=== PATIENT | female | born 1960 | race Caucasian/White ===

== ENCOUNTER → 2018-01-31 08:34 | Outpatient (CLI) | payer BC ==
[2010-09-20 07:50] VITALS: BMI 23.1
== END | disposition home or self-care (01) ==
LOC: D.CT 08:34
DX: R10.9 Unspecified abdominal pain (principal)

== ENCOUNTER 2018-11-29 06:10 | Emergency (ER) | payer BC ==
[~2018-11-29] VITALS: Ht 157.5 cm; Wt 63.6 kg
[2018-11-29 06:15] VITALS: Ht 157.5 cm; Wt 63.6 kg
[2018-11-29] MEDS ORDERED: TENORMIN50 MG PO (06:16)
[2018-11-29] MEDS ORDERED: TOPAMAX50 MG PO (06:17)
[2018-11-29] MEDS ORDERED: TRAZODONE HCL150 MG PO (06:17)
[2018-11-29] MEDS ORDERED: NORVASC10 MG PO (06:17)
[2018-11-29] MEDS ORDERED: CELEXA10 MG PO (06:17)
[2018-11-29 06:45] LABS: BASOPHILS 0.2 % (0-2); EOSINOPHILS 0.1 % (0-7); HEMATOCRIT 43.5 % (36.0-48.0); HEMOGLOBIN 14.9 g/dL (12-16); IMMATURE GRANULOCYTES 0.5 % (0-5); LYMPHOCYTES 7.5 % (15-50); MCH 28.8 pg (26.0-34.0); MCHC 34.3 g/dL (31.0-37.0); MEAN PLATELET VOLUME 9.4 fL (7.4-10.4); MONOCYTES 9.6 % (2-11); NEUTROPHILS 82.1 % (40-80); PLATELET COUNT 267 10x3/uL (130-400); RBC 5.18 10x6/uL (4.00-5.40); RDW 13.2 % (11.5-14.5)
[2018-11-29 07:03] LABS: APPEARANCE CLEAR (CLEAR); BILIRUBIN NEGATIVE (NEGATIVE); COLOR YELLOW (YELLOW); GLUCOSE NEGATIVE (NEGATIVE); KETONE NEGATIVE (NEGATIVE); NITRITE NEGATIVE (NEGATIVE); PROTEIN TRACE mg/dL (NEGATIVE); SPECIFIC GRAVITY 1.015 (1.005-1.020); UROBILINOGEN NORMAL (NORMAL)
[2018-11-29 07:06] LABS: ALBUMIN 4.2 g/dL (3.4-5.0); ALKALINE PHOSPHATASE 114 U/L (46-116); ALT (SGPT) 35 U/L (10-68); CALC OSMOLALITY 283 mosm/kg (275-300); CARBON DIOXIDE 24.5 mmol/L (21.0-32.0); CHLORIDE - SERUM 104 mmol/L (98-107); CREATININE - SERUM 1.2 mg/dL (0.6-1.3); PROTEIN - SERUM 8.3 g/dL (6.4-8.2); SODIUM 141 mmol/L (136-145); UREA NITROGEN 15 mg/dL (7-18); eGFR NON AFRICAN AMERICAN 49 mL/min (90-120)
[2018-11-29 07:09] LABS: GLUCOSE 136 mg/dL (74-106)
[2018-11-29 07:10] LABS: AMYLASE - SERUM 40 U/L (25-115); LIPASE 82 U/L (73-393); TROPONIN-I < 0.017 ng/mL (0.000-0.060)
[2018-11-29] MEDS ORDERED: FLOMAX0.4 MG PO (10:44)
[2018-11-29] MEDS ORDERED: HYDROCODON-ACE1 EAC7 PO (10:44)
[2018-11-29] MEDS ORDERED: ZOFRAN4 MG PO (10:44)
[2018-11-29 11:01] VITALS: BP 148/82
== END 2018-11-29 11:03 | disposition home or self-care (01) ==
LOC: D.ER 06:10
PROVIDERS: Family Medicine
DX: N20.1 Calculus of ureter (principal); I10 Essential (primary) hypertension

== ENCOUNTER 2018-12-15 05:55 | Inpatient (IN) | payer BC ==
[2018-12-12 14:25] LABS: BASOPHILS 0.3 % (0-2); EOSINOPHILS 3.4 % (0-7); HEMATOCRIT 39.2 % (36.0-48.0); HEMOGLOBIN 13.1 g/dL (12-16); IMMATURE GRANULOCYTES 0.6 % (0-5); LYMPHOCYTES 19.1 % (15-50); MCH 28.4 pg (26.0-34.0); MCHC 33.4 g/dL (31.0-37.0); MEAN PLATELET VOLUME 8.9 fL (7.4-10.4); MONOCYTES 11.5 % (2-11); NEUTROPHILS 65.1 % (40-80); RBC 4.61 10x6/uL (4.00-5.40); RDW 12.9 % (11.5-14.5); WBC 6.5 10x3/uL (4.8-10.8)
[2018-12-12 14:28] LABS: PLATELET COUNT 352 10x3/uL (130-400)
[2018-12-12 14:31] LABS: APTT 33.1 SECONDS (22.8-39.4); INR 1.03 (0.85-1.17)
[2018-12-12 14:48] LABS: ANION GAP 11.2 mmol/L (8-16); CALCIUM 8.9 mg/dL (8.5-10.1); CARBON DIOXIDE 27.2 mmol/L (21.0-32.0); CREATININE - SERUM 1.6 mg/dL (0.6-1.3); POTASSIUM - SERUM 4.4 mmol/L (3.5-5.1)
[~2018-12-15] VITALS: Ht 160 cm; Wt 65.5 kg
[2018-12-15] VITALS (10 sets, daily range): BP systolic 99–141; BP diastolic 54–77; Ht 160 cm; Wt 65.5 kg
--- NOTE | ~2018-12-15 | HEMODYNAMI ---
PATIENT:ELIOT RAUSCH MEDICAL RECORD: [id number] : 60 LOCATION:[facility] ADMISSION DATE: 12/15/18 Generatedon:12/15/201811:13 Patient name: ELIOT RAUSCH Patient #: [id number] SSN: : 1960 Date of study: 12/15/2018 Page: Of Hemodynamic Procedure Report Patient Data Patient Demographics Procedure consent was obtained First Name: ELIOT Gender: Female Last Name: SHALOM : 1960 Middle Initial: RUBI Age: 58 year(s) Patient #: [id number] Race: Unknown Additional ID: [id number] Contact details [address]: [address] [place] [address] [place] State: [place] City: [place] Zip code: [address] Past Medical History Allergies: No known allergies Admission Admission Data Admission Date: 12/15/2018 Admission Time: 5:55 Procedure Procedure Types Cath Procedure Peripheral Cath Diagnostic Procedure Nephro Perc Neph Uret Cath Procedure Description Procedure Date Procedure Date: 12/15/2018 Procedure Start Time: 10:28 Procedure Staff Name Function Fouzia Mohr RT Monitor Gabriel Kapadia RT Scrub Paul Kelly MD Performing Physician Steffi Huerta RN Nurse Procedure Data Cath Procedure Fluoroscopy Diagnostic fluoroscopy Total fluoroscopy Time: time: 11.2 min 11.2 min Diagnostic fluoroscopy Total fluoroscopy dose: 139 dose: 139 mGy mGy Contrast Material Contrast Material Type Amount (ml) Isovue 300 15 Diagnostic catheters Device Type Used For End Catheter Placement Merit Impress KA 2 5Fr 40CM catheter ([id number]) Procedure Medications Medication Administration Route Dosage Lidocaine 1% added to field 20 Heparin Flush Bag added to field 3 bags (1000units/500ml NS) unlisted medication 1 Versed I.V. 1 mg Fentanyl I.V. 50 mcg Versed I.V. 1 mg Fentanyl I.V. 50 mcg Versed I.V. 2 mg Hemodynamics Rest Heart Rate: 72 (bpm) Snapshots Pre Cath Intra NCS Post Cath Vital Signs Time Heart Resp SPO2 etCO2 NIBP (mmHg) Rhythm Pain Sedation Rate (ipm) (%) (mmHg) Status Level (bpm) 10:01:08 83 34 98 35.7 129/75(97) NSR 0 (11) 10(A) , No pain 10:05:24 77 9 35.7 128/70(102) NSR 0 (11) 10(A) , No pain 10:09:34 72 11 36.4 112/71(93) NSR 0 (11) 10(A) , No pain 10:13:44 76 17 36.4 128/63(102) NSR 0 (11) 10(A) , No pain 10:18:00 74 10 35 143/63(87) NSR 0 (11) 10(A) , No pain 10:22:20 75 9 100 33.4 130/68(112) NSR 0 (11) 10(A) , No pain 10:26:30 81 7 100 38 113/99(107) NSR 0 (11) 9(A) , No pain 10:30:35 77 13 99 35.7 130/76(107) NSR 0 (11) 9(A) , No pain 10:34:53 71 10 100 28.1 101/55(82) NSR 0 (11) 9(A) , No pain 10:38:57 67 3 100 35.7 91/63(85) NSR 0 (11) 8(A) , No pain 10:42:59 74 7 100 39.5 109/60(82) NSR 0 (11) 8(A) , No pain 10:47:11 73 9 100 39.5 95/52(77) NSR 0 (11) 8(A) , No pain 10:51:17 72 9 100 41.8 85/54(75) NSR 0 (11) 8(A) , No pain 10:54:03 72 7 100 42.6 104/56(81) NSR 0 (11) 8(A) , No pain 10:58:58 81 15 99 39.5 112/58(91) NSR 0 (11) 8(A) , No pain Medications Time Medication Route Dose Verified Delivered Reason Notes Effe ctiveness by by 10:22:56 Lidocaine 1% added 20ml Palu Miller for local to vial Robin Kelly MD anesthetic field 10:23:11 Heparin Flush added 3 Paul Miller used for Bag to bags Robin Kelly MD procedure (1000units/500ml field GUZMAN NS) 10:23:34 cefepime iv 1 gm Paul Kapadia Per Bradley Kelly RN physician 10:30:55 Versed I.V. 1 mg Paul Steffi for Bradley Kelly RN sedation 10:31:07 Fentanyl I.V. 50 Paul Kapadia for mcg Bradley Kelly RN sedation 10:34:50 Versed I.V. 1 mg Paul Steffi for Bradley Kelly RN sedation 10:34:58 Fentanyl I.V. 50 Paul Steffi for mcg Bradley Kelly RN sedation 10:47:41 Versed I.V. 2 mg Paul Steffi for Bradley Kelly RN sedation Procedure Log Time Note 9:29:54 Gabriel Kapadia RT (R) (CV) sent for patient. Start room use. 9:30:04 Time tracking: Regular hours (M-F 7:00 - 5:00) 9:30:09 Plan of Care:Hemodynamics will remain stable., Cardiac rhythm will remain stable., Comfort level will be maintained., Respiratory function will remain adequate., Patient/ family verbilizes understanding of procedure., Procedure tolerated without complication., Recovers from procedure without complications.. 9:30:15 Use device set IR Diagnostic 9:30:17 Sterile Angiographic Pack opened to sterile field. 9:30:17 Bag Decanter (2002S) opened to sterile field. 9:30:28 Patient received from Outpatients to IR Alert and oriented. Tansferred to table in Prone position. 9:30:29 Correct patient and procedure confirmed by team. 9:30:31 Signed procedure consent form obtained from patient. 9:30:32 ECG and BP/O2 sat monitors applied to patient. 9:30:33 Full Disclosure recording started 9:30:34 - 9:30:38 H&P Date Dictated: 12/15/2018 H&P Addendum completed by physician on day of procedure. (MUST COMPLETE FOR ALL OUTPATIENTS). 9:30:39 Pre-procedure instructions explained to patient. 9:30:40 Pre-op teaching completed and patient verbalized understanding. 9:30:42 Family in patients room. 9:30:45 Patient NPO since Midnight. 9:31:03 Patient allergic to No known allergies 9:31:05 Is the patient allergic to Iodine/contrast media? No. 9:31:07 Is patient on blood thinner?No 9:31:09 Patient diabetic? No. 9:31:11 - 9:31:12 ----Pre-sedation anethsthesia assessment.---- 9:31:15 Previous problem with sedation/anesthesia? No ? 9:31:17 Snore? Yes 9:31:18 Sleep apnea? No 9:31:20 Deviated septum? No 9:31:21 Opens mouth fully? Yes 9:31:23 Sticks out tongue? Yes 9:31:25 Airway obstruction? No ? 9:31:28 Dentures? No ? 9:59:32 CHIBA 22 X 15 needle opened to sterile field. 9:59:33 GLIDE CATHETER 5FR ANGLED 65cm (CG507) opened to sterile field. 9:59:55 - 10:00:00 Vital chart was started 10:00:02 Baseline sample Acquired. 10:00:24 KIT, INTRODUCER ACCUSTICK II W/C ([id number]) opened to sterile field. 10:08:04 - 10:08:41 IV patent on arrival in left forearm with D5/.45%NaCl at KVO. 10:08:52 Right Renal was prepped with chlora-prep and draped in sterile fashion. 10:08:59 - 10:22:56 Lidocaine 1% 20ml vial added to field was administered by Paul Kelly MD; for local anesthetic; 10:23:11 Heparin Flush Bag (1000units/500ml NS) 3 bags added to field was administered by Paul Kelly MD; used for procedure; 10:23:34 cefepime 1 gm iv was administered by Steffi Huerta RN; Per physician; 10:27:27 Physician arrived 10:27:30 --------ALL STOP TIME OUT------ 10:27:31 Final Timeout: patient, procedure, and site verified with staff and physician. All members of the team are in agreement. 10:28:03 Procedure started. 10:28:12 Local anesthetic to Right Renal area with Lidocaine 1% by Paul Kelly MD.INITIAL ACCESS ONLY 10:29:53 NITINOL .018 80cm wire ([id number]) opened to sterile field. 10:30:55 Versed 1 mg I.V. was administered by Steffi Huerta RN; for sedation; 10:31:07 Fentanyl 50 mcg I.V. was administered by Steffi Huerta RN; for sedation ; 10:34:50 Versed 1 mg I.V. was administered by Steffi Huerta RN; for sedation; 10:34:58 Fentanyl 50 mcg I.V. was administered by Steffi Huerta RN; for sedation ; 10:47:41 Versed 2 mg I.V. was administered by Steffi Huerta RN; for sedation; 10:51:11 GLIDE WIRE ANGLE 180cm (ZW4955) opened to sterile field. 10:51:32 TORQUE DEVICE PLASTIC .038 ( TD01) opened to sterile field. 10:51:39 BENTSON 145cm wire (Z72873) opened to sterile field. 10:51:42 A Merit Impress KA 2 5Fr 40CM catheter ([id number]) was advanced over the wire and used for . 10:54:06 GLIDE WIRE ADVANTAGE 260cm (BJ7012) opened to sterile field. 10:58:12 Tegaderm 6 x 8 (1628) opened to sterile field. 10:59:15 ka cath placed for nephro/ureteral access 11:00:17 Procedure ended.(Physican Out) 11:00:33 Fluoroscopy time 11.20 minutes. 11:00:40 Fluoroscopy dose: 139 mGy 11:00:40 Flurop Dose total: 139 11:00:48 Contrast amount:Isovue 300 15ml. 11:00:50 Procedure and supply charges have been captured, reviewed, submitted an d are correct. 11:01:23 Report given to Outpatients. 11:03:18 Vital chart was stopped 11:03:22 Full Disclosure recording stopped Device Usage Item Name Manufacture Quantity Catalog Hospital Part Current Minimal Lot# / Number Charge Number Stock Stock Serial# Code Bag Decanter Microtek 1 [id number] 07071 014125 5 () Medical Inc. Sterile Cardinal 1 [id number] 335009 734554 5 Angiographic Health Pack CHIBA 22 X Cook Medical 1 D00609 036596 398941 5 1341008 15 needle GLIDE Terumo 1 CG507 930469 358734 5 CATHETER 5FR ANGLED 65cm (CG507) KIT, [place] 1 [id number] 311834 405899 829164 5 [id number] INTRODUCER Scientific ACCUSTICK II W/C ([id number]) NITINOL .018 Medtronic 1 [id number] 521363 562023 5 [id number] 80cm wire (D152011) GLIDE WIRE Terumo 1 XS1093 415314 028717 255636 5 ANGLE 180cm (QU2676) TORQUE [place] 1 TD01 739937 497049 795575 5 DEVICE Scientific PLASTIC .038 ( TD01) BENTSON [facility] 1 N06669 968778 533218 5 145cm wire (G96203) Merit Merit 1 [id number] 816131 826712 5 Impress KA 2 Medical 5Fr 40CM catheter (08081SA1) GLIDE WIRE Terumo 1 WW1767 137238 663074 5 ADVANTAGE 260cm (CG0115) Tegaderm 6 x 3M 1 1628 784712 981630 5 8 (1628) Signature Audit [place] Stage Time Signature Unsigned Intra-Procedure 12/15/2018 Fouzia Kapadia RT 11:03:15 AM RT(R) (R) (CV) 12/15/2018 11:12:51 AM Intra-Procedure 12/15/2018 Gabriel 11:13:34 AM Kang RT (R) (CV); Fouzia Mohr RT(R) Signatures Monitor : Fouzia Mohr RT Signature : Date : Time : [facility] [address] [place] [address]
[~2018-12-15 05:55] MED LIST: CELEXA10 MG PO; FLOMAX0.4 MG PO; HYDROCODON-ACE1 EAC7 PO; NORVASC10 MG PO; TENORMIN50 MG PO; TOPAMAX50 MG PO; TRAZODONE HCL150 MG PO; ZOFRAN4 MG PO
--- NOTE | 2018-12-15 11:20 | NUR ---
1115 TO 2510 FROM XRAY BY STRETCHER, UP TO BR VOIDS LG AMT. IV PATENT HAS DRESSING CDI TO RIGHT BACK FLANK AREA. SEE POST PROCEDURE CHECKLIST FOR VITAL SIGN MONITORING. AWAITING SURGERY. FAMILY RETURNED TO ROOM.
--- NOTE | 2018-12-15 15:30 | NUR ---
PATIENT IN BED WITH IV INTACT. NO COMPLAINTS OR SIGNS OF DISTRESS. NEPHOR TUBE AND RONQUILLO INTACT. SMALL AMOUNT OF BLOOD IN NEPHRO TUBE. URINE IS DARK ORANGE AND DRAINING WITH NO PROBLEMS. VS STABLE. FAMILY AT BEDSIDE. CALL LIGHT WITHIN REACH.
--- NOTE | 2018-12-15 17:00 | NUR ---
PATIENT IN BED WITH EYES CLOSED RESTNG QUIETLY. IV INTACT. NO COMPLAINTS. TOLERATING LIQUIDS. FAMILY AT BEDSIDE. CALL LIGHT WITHIN REACH. VS STABLE.
--- NOTE | 2018-12-15 18:45 | NUR ---
PATIENT TOLERATED LIQUID DIET AND SOUP AT THIS TIME. NO PROBLEMS NOTED. SMALL AMOUNT OF BLOODY URINE IN NEPHRO BAG AND ONLY ABOUT 200 IN RONQUILLO. REPORTED TO NIGHT NURSE. NO COMPLAINTS AT THIS TIME. I VINTACT. FAMILY AT BEDSIDE. CALL LIGHT WITHIN REACH.
--- NOTE | 2018-12-15 20:10 | NUR ---
SITTING UP IN BED TALKING TO VISITORS. ALERT AND ORIENTED X4. RESP EVEN AND NONLABORED. BBS CTA. RT NEPHROSTOMY TUBE NOTED TO RT FLANK DRAINING BLOODY FLUID. DRSG TO RT FLANK IS C/D/I. RONQUILLO CATH PATENT AND DRAINING BLOOD TINGED URINE. REPORTS PAIN IN RT FLANK 4. NO EDEMA NOTED. SCDS IN USE BILAT. SALINE LOCK NOTED TO LT FOREARM. NO DISTRESS. SR ELEVATED X2. CL IN REACH.
--- NOTE | 2018-12-15 22:23 | OP ---
PATIENT NAME: ELIOT RAUSCH MEDICAL RECORD: [id number] :60 LOCATION:D.MS [id number] ADMISSION DATE: SURGEON: JH MARRUFO MD DATE OF OPERATION: 12/15/2018 SURGEON: Jh Marrufo MD ANESTHESIA: General anesthesia by Medardo Brenner CRNA DIAGNOSIS: Right renal stone of 9 mm at the UP junction and 6-mm right lower pole renal stone. PROCEDURES: Cystoscopy and right percutaneous nephrolithotomy. FINDINGS: Two radiodense stones in the right kidney. SPECIMENS: Right renal stones times 2. BLOOD LOSS: Minimal. CLINICAL HISTORY: This is a 58-year-old female who has been complaining of chronic right flank pain with right upper quadrant abdominal pain for the past 2 years. She went to the Emergency Room, where a CT scan showed a 9-mm stone in the right UP junction and a 6-mm right lower pole renal stone. She had a CT scan in 2017 which showed these 2 stones in the right lower pole at that time. She comes now to have these stones removed. Instead of having multiple sessions of ESWL, she wishes to have one session of PCNL in order to remove both stones entirely. She is not allergic to any medications. She was given Ancef on-call to the OR. The patient was brought to the interventional radiology suite earlier today. Dr. Kelly placed a mid pole access into the right kidney. We left a nephroureteral tube. She comes now to have the procedure done to remove the stones. DESCRIPTION OF PROCEDURE: The patient was given induction of general anesthesia while she was in supine position on her stretcher. She was then placed into frogleg position and prepped and draped. We performed cystoscopy on her with a view to pulling the distal end of the stent out of the urethra. However, it seems on looking at both ureteral orifices that the stent does not extend all the way down the ureter. The bladder itself showed single ureteral orifice on each side and no bladder tumors were seen. The patient was then turned into the prone position. A Barrett catheter was inserted into the bladder and put to bag drainage. The nephroureteral access tube was in the right flank. We prepped and draped it. An Amplatz Super Stiff wire was then placed on the lumen of the nephroureteral catheter. This went into the bladder and coiled distally. We then removed the nephroureteral catheter and discarded it. This left the wire in place. On either side of the wire, a small incision was made using a #15 blade. A dual-lumen catheter was then inserted over the Super Stiff wire. Through the second lumen of the dual lumen catheter, a Sensor wire was placed down into the bladder level. This acted as a safety wire. We worked over the Super Stiff wire. The safety wire was clamped to the drapes using hemostat. Over the Super Stiff wire, we inserted a NephroMax 30-Scottish internal circumference extra long sheath balloon dilator. This was then placed up to the level of the UP junction stone at its apex. We then inflated the tract with 16 OPERATIVE REPORT [id number] ELIOT RAUSCH atmospheres of pressure and the working sheath was slid over the balloon and into the kidney. The balloon was then deflated and removed entirely. We placed the rigid nephroscope into the kidney. We saw the stone at the right UPJ region. A Cook Perc NCircle basket was placed around the stone and the stone was removed entirely and sent to pathology for analysis. We then pulled the sheath back, and under fluoroscopic guidance, we found the lower pole stone. This stone was also removed using the Cook Perc NCircle basket. At the end of the procedure, no further radiodensities could be seen and no further stone could be seen in the kidney. The scope was then removed. A 24-Scottish Malecot nephrostomy tube was inserted down the tube. The Malecot wings were seen to expand within the renal pelvis. The wires were all removed. The nephrostomy tube was sutured to the skin using 2-0 nylon. It was then put to bag drainage. The patient will be placed in the hospital for at least 24 hours for postop recovery. My intention is to send her home after being in the hospital for 2 days in order to allow the nephrostomy tube site to heal. TRANSINT:[id number] Voice Confirmation ID: [id number] DOCUMENT ID: [id number] JH MARRUFO MD at 2223 CC: [id number] DICTATION DATE: 12/15/18 1424 LEARNING OFFICER: 12/15/18 1631 [facility] [address] [place] [address]
--- NOTE | 2018-12-15 22:40 | NUR ---
MEDICATED WITH NORCO FOR C/O PAIN IN RT FLANK RATING 7. FAMILY AT BEDSIDE. CL IN REACH.
[2018-12-16 00:23] VITALS: BP 117/52
--- NOTE | 2018-12-16 02:05 | NUR ---
MEDICATED WITH MORPHINE FOR C/O PAIN IN RT FLANK/BACK RATING 10. CL IN REACH.
--- NOTE | 2018-12-16 04:27 | NUR ---
MEDICATED WITH NORCO FOR C/O PAIN IN RT FLANK/BACK RATING 10. CL IN REACH.
[2018-12-16 05:09] VITALS: BP 111/56
--- NOTE | 2018-12-16 05:54 | NUR ---
MEDICATED FOR C/O PAIN IN RT FLANK/BACK WITH MORPHINE FOR PAIN RATING 7. CL IN REACH.
[2018-12-16 08:19] VITALS: BP 118/60
[2018-12-16 09:38] LABS: ANION GAP 12.8 mmol/L (8-16); BILIRUBIN - TOTAL 0.26 mg/dL (0.2-1.3); CALCIUM 8.3 mg/dL (8.5-10.1); CREATININE - SERUM 1.3 mg/dL (0.6-1.3); POTASSIUM - SERUM 3.8 mmol/L (3.5-5.1); PROTEIN - SERUM 6.9 g/dL (6.4-8.2)
[2018-12-16 12:21] VITALS: BP 111/58
[2018-12-16 16:30] VITALS: BP 108/55
--- NOTE | 2018-12-16 17:50 | NUR ---
PT REPORTS THAT SHE IS FEELING "LIKE I HAVE A FEVER AND I JUST DONT FEEL GOOD". TEMPERATURE TAKEN PER PT REQUEST. SEE FLOWSHEET. DERICK MEHTA NOTIFIED OF PT TEMPERATURE.
--- NOTE | 2018-12-16 18:00 | NUR ---
16FR RONQUILLO CATHETER REMOVED. 10ML SALINE REMOVED FROM STABILIZATION BALLOON. 650 ML TEA COLORED URINE NOTED I RONQUILLO COLLECTION BAG. PT TOLERATED WELL. BED IS IN THE LOWEST POSITION. CALL LIGHT AND BEDSIDE TABLE ARE WITHIN REACH.
--- NOTE | 2018-12-16 18:51 | NUR ---
I have reviewed this patient and I concur with the Shift Assessment completed by the Licensed Practical Nurse today this shift.
--- NOTE | 2018-12-16 19:55 | NUR ---
PT RESTING IN BED ALERT AND ORIENTED. NO SIGNS OF DISTRESS. BREATHING EVEN AND UNLABORED. PT STATES NO PROBLEMS AT THIS TIME. IV SITE LT FA DRESSING CLEAN DRY AND INTACT. NO SIGNS OF INFECTION. BOWEL SOUNDS ACITVE. DRAIN RT LOWER BACK DRESSING OFF. REDRESSED WITH 4X4 ABD PAD AND TAPE. NO DRAINAGE AT THIS TIME. NO LOWER LEG SWELLING PESENT. WILL CONTINUE PLAN OF CARE. CALL LIGHT IN REACH. BED LOWERED AND LOCKED.
[2018-12-16 21:05] VITALS: BP 133/70
--- NOTE | 2018-12-17 02:53 | NUR ---
I have reviewed this patient and I concur with the Shift Assessment completed by the Licensed Practical Nurse today this shift.
[2018-12-17 04:43] VITALS: BP 117/59
[2018-12-17 08:47] VITALS: BP 129/77
--- NOTE | 2018-12-17 10:18 | MORECARE ---
CASE MANAGEMENT DISCHARGE SUMMARY PATIENT: ELIOT RAUSCH UNIT: [id number] ADM DATE: 12/16/18 AGE: 58 : 60 SEX: F ROOM/BED: D.2213 AUTHOR: JIMMY HEMPHILL PHYSICIAN: REFERRING PHYSICIAN: MATIAS MARRUFO MD DATE OF SERVICE: 12/17/18 Discharge Plan Patient Name: ELIOT RAUSCH Facility: [facility]:[place] : 1960 Planned Disposition: Anticipated Discharge Date: Discharge Date: Expected LOS: Initial Reviewer: [email or web address] Initial Review Date: 12/16/2018 Generated: 12/17/18 11:18 am Comments DCP- Discharge Planning Updated by [email or web address]: Leonarda Lee on 12/17/18 9:[address] Patient Name: ELIOT RAUSCH Admission Status: Elective Accout number: [id number] Admission Date: 12-16-2018 : 1960 Admission Diagnosis: Attending: LUIS ALBERTO MARRUFO Current LOS: 1 Anticipated DC Date: Planned Disposition: Primary [facility] [employer] [facility] Discharge Planning Comments: I MET WITH PATIENT TO ASSESS DISCHARGE PLANNING NEEDS. HER IS AT HER BEDSIDE, SHE STATES SHE IS INDEPENDENT WITH HER CARE AT HOME. HER HOME IS SAFE TO RETURN AND HE DENIES ANY NEEDS AT THIS TIME. PATIENT WILL BE DISCHARGING HOME AT THIS TIME. CM TO FOLLOW AND ASSIST WITH DC PLANNING NEEDED Electrical Tech: Leonarda Lee Patient Name: ELIOT RAUSCH Page [phone] at 1018 All edits/amendments must be made on the electronic document DICTATION DATE: 12/17/18 1018 SAND MILL GRINDER: HENRRY 12/17/18 1018 RPT#: [id number] DC DATE: STATUS: ADM IN [facility] [address] [place] [address] END OF REPORT
[2018-12-17] MEDS ORDERED: HYDROCODON-ACE1 EAC2 PO (10:26)
[2018-12-17] MEDS ORDERED: ZOFRAN4 MG PO (10:27)
--- NOTE | 2018-12-17 10:39 | NUR ---
PIV REMOVED, TIP INTACT.
--- NOTE | 2018-12-17 11:00 | NUR ---
DISCUSSED DICHARGE, MEDICATION AND FOLLOW-UP INSTRUCTIONS WITH PATIENT AND SPOUSE. ALL BELONGINGS SENT WITH PATIENT. DISCHARGED HOME VIA WHEELCHAIR BY MYSELF ACCOMPAINED BY SPOUSE.
--- NOTE | 2018-12-17 14:14 | MORECARE ---
CASE MANAGEMENT DISCHARGE SUMMARY PATIENT: ELIOT RAUSCH UNIT: [id number] ADM DATE: 12/16/18 AGE: 58 : 60 SEX: F ROOM/BED: D.2213 AUTHOR: JIMMY HEMPHILL PHYSICIAN: REFERRING PHYSICIAN: MATIAS MARRUFO MD DATE OF SERVICE: 12/17/18 Discharge Plan Patient Name: ELIOT RAUSCH [facility] : 1960 Planned Disposition: Anticipated Discharge Date: Discharge Date: 12/17/2018 Expected LOS: Initial Reviewer: [email or web address] Initial Review Date: 12/16/2018 Generated: 12/17/18 3:13 pm Comments DCP- Discharge Planning Updated by [email or web address]: Leonarda Lee on 12/17/18 9:[address] Patient Name: ELIOT RAUSCH Admission Status: Elective Accout number: [id number] Admission Date: 12-16-2018 : 1960 Admission Diagnosis: Attending: LUIS ALBERTO MARRUFO Current LOS: 1 Anticipated DC Date: Planned Disposition: Primary Insurance: [employer] Discharge Planning Comments: I MET WITH PATIENT TO ASSESS DISCHARGE PLANNING NEEDS. HER IS AT HER BEDSIDE, SHE STATES SHE IS INDEPENDENT WITH HER CARE AT HOME. HER HOME IS SAFE TO RETURN AND HE DENIES ANY NEEDS AT THIS TIME. PATIENT WILL BE DISCHARGING HOME AT THIS TIME. CM TO FOLLOW AND ASSIST WITH DC PLANNING NEEDED Superintendent Stevedoring: Leonarda Lee Last DP export: 12/17/18 9:18 a Patient Name: ELIOT RAUSCH Page [phone] at 1414 All edits/amendments must be made on the electronic document DICTATION DATE: 12/17/18 1413 DEPILATORY PAINTER: HENRRY 12/17/18 1413 RPT#: [id number] DC DATE:12/17/18 STATUS: DIS IN [facility] [address] [place] [address] END OF REPORT
[2018-12-19 11:20] LABS: CALCULI - CA OXALATE DIHYDRATE 20 % (()); CALCULI - CA OXALATE MONOHYDR 60 % (()); CALCULI - CALCIUM PHOSPHATE 20 % (()); CALCULI - COLOR Brown (()); CALCULI - COMMENT Note: (())
== END 2018-12-17 14:54 | disposition home or self-care (01) | DRG 661 ==
LOC: D.OPS 05:55 → D.MS 14:36 → D.OPS 14:37 → D.MS 12-16 08:15 → D.OPS 12-16 08:17 → D.MS 12-17 11:00
PROVIDERS: General Practice; ADMIT Urology; ATTEND Urology
PROC: 0TC08ZZ Extirpation of Matter from Right Kidney, Via Natural or Artificial Opening Endoscopic (ICD-10-PCS; principal; 2018-12-15 09:00)
PROC: 0T9030Z Drainage of Right Kidney with Drainage Device, Percutaneous Approach (ICD-10-PCS; 2018-12-15 11:00)
DX: N20.0 Calculus of kidney (principal)